=== PATIENT | male | born 1950 | race Caucasian/White ===

== ENCOUNTER 2023-12-02 12:05 | Emergency (ER) | payer MEDICARE, MEDICAID ==
[~2023-12-02] VITALS: Ht 172.7 cm; Wt 56.0 kg
[2023-12-02 12:34] VITALS: TEMP 98.3
[2023-12-02 14:47] VITALS: BP 125/96; PULSE 81; RESP 17; O2SAT 99
== END 2023-12-02 14:49 | disposition home or self-care (01) ==
LOC: ER 12:06
DX: S90.32XA Contusion of left foot, initial encounter (principal); X58.XXXA Exposure to other specified factors, initial encounter; Y93.89 Activity, other specified; Y92.89 Other specified places as the place of occurrence of the external cause; Y99.8 Other external cause status
CPT/HCPCS: 73630; 99283